=== PATIENT | male | born 1970 | race Caucasian/White ===

== ENCOUNTER → 2017-11-03 | Outpatient (CLI) | payer OTHER ==
[~2017-11-03] MED LIST: ANDRODERM T; KEFLEX500 M1 PO; LANTUS SOL100 UNIT/1 SQ; NEURONTIN800 MG PO; NOVOLOG 70/30 M10 ML SC; PROVENTIL HFA6.7 GM IH; TENORMIN25 M1 PO; TRULICITY0.75 MG/0. SC; ZESTRIL20 MG PO; ZOCOR20 MG PO
== END | disposition home or self-care (01) ==
LOC: US 07:26
DX: K83.1 Obstruction of bile duct (principal); G43.A0 Cyclical vomiting, in migraine, not intractable

== ENCOUNTER → 2017-11-27 | Day surgery (SDC) | payer OTHER ==
[~2017-11-27] VITALS: Ht 1828 cm; Wt 167.8 kg
== END ==
LOC: SDC 11-02 14:45
DX: Z12.11 Encounter for screening for malignant neoplasm of colon (principal); K21.9 Gastro-esophageal reflux disease without esophagitis; Z53.9 Procedure and treatment not carried out, unspecified reason

== ENCOUNTER → 2017-12-12 | Outpatient (CLI) | payer OTHER | LOC: US 10:38 | DX: R60.0 Localized edema (principal); R06.02 Shortness of breath; R05 Cough; I50.33 Acute on chronic diastolic (congestive) heart failure; I10 Essential (primary) hypertension; E11.9 Type 2 diabetes mellitus without complications; Z87.891 Personal history of nicotine dependence ==

== ENCOUNTER → 2017-12-21 | Outpatient (CLI) | payer OTHER | END | disposition home or self-care (01) | LOC: CARD 13:44 | DX: I50.33 Acute on chronic diastolic (congestive) heart failure (principal) ==

== ENCOUNTER 2019-12-28 13:49 | Emergency (ER) | payer OTHER ==
[~2019-12-28] VITALS: Ht 185.4 cm; Wt 161.9 kg
[2019-12-28] MEDS ORDERED: CYCLOBENZAPRINE10 MG PO (16:25)
[2019-12-28] MEDS ORDERED: Motrin,Rufen800 MG PO (16:25)
== END 2019-12-28 16:33 | disposition home or self-care (01) ==
LOC: ED 13:49
DX: S39.012A Strain of muscle, fascia and tendon of lower back, initial encounter (principal); S16.1XXA Strain of muscle, fascia and tendon at neck level, initial encounter; S29.012A Strain of muscle and tendon of back wall of thorax, initial encounter; I10 Essential (primary) hypertension; J45.909 Unspecified asthma, uncomplicated; E11.9 Type 2 diabetes mellitus without complications; F17.200 Nicotine dependence, unspecified, uncomplicated; V43.52XA Car driver injured in collision with other type car in traffic accident, initial encounter; Z91.041 Radiographic dye allergy status; Z79.4 Long term (current) use of insulin; Z79.899 Other long term (current) drug therapy; Y93.89 Activity, other specified; Y92.89 Other specified places as the place of occurrence of the external cause; Y99.9 Unspecified external cause status

== ENCOUNTER 2020-04-28 13:23 | Emergency (ER) | payer OTHER ==
[~2020-04-28] VITALS: Ht 182.8 cm; Wt 168.7 kg
[~2020-04-28 13:23] MED LIST changes: +CYCLOBENZAPRINE10 MG PO; +Motrin,Rufen800 MG PO
[2020-04-28] MEDS ORDERED: LOPRESSOR50 M1 PO (13:43)
== END 2020-04-28 14:12 | disposition home or self-care (01) ==
LOC: ED 13:23
DX: I16.0 Hypertensive urgency (principal); I10 Essential (primary) hypertension; J45.909 Unspecified asthma, uncomplicated; E11.9 Type 2 diabetes mellitus without complications; F17.200 Nicotine dependence, unspecified, uncomplicated; Z91.030 Bee allergy status; Z79.899 Other long term (current) drug therapy; Z79.4 Long term (current) use of insulin

== ENCOUNTER 2020-05-04 18:46 | Observation (INO) | payer OTHER ==
[~2020-05-04] VITALS: Ht 182.9 cm; Wt 168.3 kg
[~2020-05-04 18:46] MED LIST changes: +LOPRESSOR50 M1 PO
[2020-05-04 18:48] VITALS: BP 110/64
--- NOTE | 2020-05-04 19:24 | NUR ---
PT RESTING IN BED.FLUIDS INFUSING.PER MD LANGFORD FLUID BOLUS OF 500NS INITIATED.
[2020-05-04 19:25] LABS: BASO % 0.3 % (0.0-1.0); EOS % 0.3 % (1.0-4.0); HEMATOCRIT 47.2 % (42.0-52.0); LYMPH # 1.8 10*3/uL (1.3-4.4); LYMPH % 12.1 % (27.0-41.0); MEAN CELL VOLUME 85.7 fl (80.0-94.0); MEAN CORPUSCULAR HGB 28.5 pg (27.0-31.0); MEAN CORPUSCULAR HGB CONC 33.3 g/dl (33.0-37.0); MEAN PLATELET VOLUME 10.4 fl (9.6-12.3); MONO # 0.8 10*3/uL (0.1-1.0); MONO % 5.8 % (3.0-9.0); NEUT # 11.8 10*3/uL (2.3-7.9); PLATELET COUNT AUTOMATED 212 10*3/uL (130-400); RED BLOOD COUNT 5.51 10*6/uL (4.50-5.90); RED CELL DISTRI WIDTH 13.2 % (0-14.5); WHITE BLOOD COUNT 14.6 10*3/uL (4.8-10.8)
[2020-05-04 19:29] VITALS: BP 88/58
[2020-05-04 19:36] LABS: ACT PARTIAL THROMBO TIME 24.6 SECONDS (20.0-32.1); INTERNATIONAL NORM RATIO 0.9 (2.0-3.5)
[2020-05-04 19:41] LABS: ALBUMIN 3.1 gm/dl (3.1-4.5); ALKALINE PHOSPHATASE 90 U/L (45-117); BUN 19 mg/dl (7-24); CHLORIDE 103 mmol/L (98-107); CREATININE 1.44 mg/dL (0.70-1.30); POTASSIUM 3.7 mmol/L (3.5-5.1); SGOT/AST 14 IU/L (3-35); SGPT/ALT 29 U/L (12-78); SODIUM 135 mmol/L (136-145); TOTAL PROTEIN 7.3 gm/dL (6.4-8.2); TROPONIN I < 0.015 ng/ml (<0.045)
[2020-05-04 19:47] VITALS: BP 128/67
--- NOTE | 2020-05-04 19:47 | NUR ---
PT RETURNED FROM CT VIA STRETCHER.FLUIDS CONTINUE TO INFUSE.
--- NOTE | 2020-05-04 20:04 | NUR ---
INFUSION [id number] BOLUS NS COMPLETED.FLUIDS CONTINUE TO INFUSE @ 500CC/HR.
[2020-05-04] MEDS ORDERED: PIOGLITAZONE HC15 MG PO (20:19)
[2020-05-04] MEDS ORDERED: ROSUVASTATIN CAL5 MG PO (20:19)
[2020-05-04] MEDS ORDERED: TRULICITY1.5 MG/0.5 SC (20:20)
[2020-05-04] MEDS ORDERED: LEVOTHYROXINE50 MCG PO (20:36)
[2020-05-04] MEDS ORDERED: LASIX40 MG PO (20:37)
[2020-05-04] MEDS ORDERED: PREGABALIN200 MG PO (20:38)
[2020-05-04] MEDS ORDERED: ROPINIROLE HYDRO4 MG PO (20:39)
[2020-05-04 20:50] VITALS: BP 109/61
--- NOTE | 2020-05-04 20:56 | NUR ---
PASSWORD "[id number]" BY PT AND .
--- NOTE | 2020-05-04 20:57 | NUR ---
PT DENIES ANY WOUNDS, SORES OR CUTS AT THIS TIME.
--- NOTE | 2020-05-04 20:58 | NUR ---
PT DOES REPORT HE STILL HAS A HEADACHE. AWARE.
[2020-05-04 21:14] VITALS: BP 116/53
--- NOTE | 2020-05-04 21:14 | NUR ---
PT AWAITING ROOM ASSIGNMENT FOR ADMISSION TO UNIT. REMAINS AT BEDSIDE AT THIS TIME.
--- NOTE | 2020-05-04 21:28 | NUR ---
PT REPORTS HEADACHE 06/29.PT MEDICATED PER EMAR WTIH 30TORADOL IVP.
--- NOTE | 2020-05-04 21:35 | NUR ---
PT TO UNIT AT THIS TIME.
[2020-05-04 21:44] VITALS: BP 122/60
--- NOTE | 2020-05-04 21:44 | NUR ---
A 49, admitted to , under the services of AMANDA Chappell DO with a diagnosis of UNCONTROLLED DIABETES, SYNCOPE, HYPOTENSION. Chief complaint is SYNCOPE, HYPOTENSION. Patient arrived via stretcher from ER. Monitor applied. Initial assessment completed. Vital signs taken and recorded. AMANDA CHAPPELL DO notified of admission to the unit. Orders received. See assessment for past medical history, medications and allergies. Patient and/or family oriented to unit. [address] visitation policy reviewed. Clothing/patient valuable form completed. TEJINDER HAINES
--- NOTE | 2020-05-04 21:44 | NUR ---
PER PATIENT HE HAS SLEEP APNEA AND WEARS A CPAP AT NIGHT. PATIENT DID NOT BRING THIS IN WITH HIM AND IS GOING TO SEE IF HIS CAN BRING IT TOMORROW. PER PATIENT HE JUST USED 2L O2 LAST TIME HE WAS IN THE HOSPITAL AND THIS WAS FINE. PLACED ON 2L NC AT THIS TIME.
--- NOTE | 2020-05-04 21:56 | NUR ---
A 49, admitted to , under the services of AMANDA Chappell DO with a diagnosis of UNCONTROLLED DIABETES, SYNCOPE, HYPOTENSION. Chief complaint is SYNCOPE, LOW BP. Patient arrived via stretcher from ER. Monitor applied. Initial assessment completed. Vital signs taken and recorded. AMANDA CHAPPELL DO notified of admission to the unit. Orders received. See assessment for past medical history, medications and allergies. Patient and/or family oriented to unit. [address] visitation policy reviewed. Clothing/patient valuable form completed. TEJINDER HAINES
--- NOTE | 2020-05-04 23:12 | NUR ---
ANSWERING SERVICE NOTIFIED OF NEW CONSULT.
[2020-05-05] VITALS: BP 96/54
[2020-05-05 06:27] LABS: BUN 19 mg/dl (7-24); CHLORIDE 104 mmol/L (98-107); POTASSIUM 3.5 mmol/L (3.5-5.1); SODIUM 137 mmol/L (136-145)
[2020-05-05 06:40] LABS: CHOLESTEROL 184 mg/dL (<200); CREATININE 0.84 mg/dL (0.70-1.30); FREE T4 0.92 ng/dl (0.76-1.46); HDL CHOLESTEROL 51 mg/dl (40-60); LDL CHOLESTEROL 91 mg/dL (9-159); TRIGLYCERIDES 211 mg/dl (<150); VLDL CHOLESTEROL 42 mg/dL (6-40)
[2020-05-05 07:26] LABS: BASO % 0.2 % (0.0-1.0); EOS # 0.1 10*3/uL (0.0-0.4); EOS % 1.2 % (1.0-4.0); HEMATOCRIT 47.3 % (42.0-52.0); LYMPH # 2.6 10*3/uL (1.3-4.4); LYMPH % 21.7 % (27.0-41.0); MEAN CELL VOLUME 87.4 fl (80.0-94.0); MEAN CORPUSCULAR HGB 28.7 pg (27.0-31.0); MEAN CORPUSCULAR HGB CONC 32.8 g/dl (33.0-37.0); MEAN PLATELET VOLUME 10.4 fl (9.6-12.3); MONO # 0.8 10*3/uL (0.1-1.0); MONO % 6.6 % (3.0-9.0); NEUT # 8.5 10*3/uL (2.3-7.9); NEUT % 69.7 % (47.0-73.0); PLATELET COUNT AUTOMATED 172 10*3/uL (130-400); RED BLOOD COUNT 5.41 10*6/uL (4.50-5.90); RED CELL DISTRI WIDTH 13.4 % (0-14.5); WHITE BLOOD COUNT 12.1 10*3/uL (4.8-10.8)
[2020-05-05 08:00] VITALS: BP 127/82
--- NOTE | 2020-05-05 09:00 | NUR ---
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 Patient states lives at home with . There are 3 steps in the home. Physician: raymond astorga Pharmacy: [facility] Home health services: none Patient's level of ADLs: INDEPENDENT Patient has working utilities: all working DME: cpap Follow-up physician's appointment after d/c: will be made by hospitalist nurse director upon discharge Does patient want to access PORTAL?: no Discharge plan discussed with patient, he lives at home with and son, he is independent in adls and ambualtion, drives, he states he will return home when medically stable and denies any home needs, case management will follow. CALIN GARCIA
--- NOTE | 2020-05-05 09:22 | NUR ---
OFF FLOOR FOR STRESS TEST.
[2020-05-05 09:46] LABS: VITAMIN D, 25-HYDROXY 11.7 ng/mL (30-100)
--- NOTE | 2020-05-05 10:52 | NUR ---
INFORMED CONSENT SIGNED FOR LEXISCAN STRESS TEST WITH DR. LUND. RESTING EKG NSR, HR 88, BP 140/100. COMPLETED ONE MNUTE OF LEXISCAN PROTOCOL RECEIVING LEXISCAN 0.4MG OVER 10 SECONDS. NO ARRHYTHMIAS OR ST CHANGES NOTED. PT C/O SOB. LAST RECOVERY HR 94, BP 132/84. WAITING NUCLEAR SCANNING IN STABLE CONDITION.
--- NOTE | 2020-05-05 11:07 | NUR ---
PT STILL OFF FLOOR FOR STRESS TEST.
[2020-05-05 12:00] VITALS: BP 129/80
[2020-05-05] MEDS ORDERED: VITAMIN D350 MC1 PO (13:24)
--- NOTE | 2020-05-05 14:45 | NUR ---
[facility] Discharge instructions reviewed with patient/family. Patient receptive and verbalizes understanding. Follow-up care arranged. Written instructions given to patient/family. BERENICE YATES
== END 2020-05-05 14:45 | disposition home or self-care (01) ==
LOC: ED 18:46 → 4E 20:55 → EDHOLD 20:55 → 4E 20:55
PROVIDERS: Emergency Medicine; Internal Medicine; ADMIT Family Medicine
DX: R55 Syncope and collapse (principal); N17.0 Acute kidney failure with tubular necrosis; E87.1 Hypo-osmolality and hyponatremia; I95.9 Hypotension, unspecified; R00.0 Tachycardia, unspecified; E11.65 Type 2 diabetes mellitus with hyperglycemia; D72.829 Elevated white blood cell count, unspecified; E87.5 Hyperkalemia; I10 Essential (primary) hypertension; G25.81 Restless legs syndrome; E03.9 Hypothyroidism, unspecified; F41.9 Anxiety disorder, unspecified; G47.30 Sleep apnea, unspecified; J44.9 Chronic obstructive pulmonary disease, unspecified; E66.01 Morbid (severe) obesity due to excess calories; F17.210 Nicotine dependence, cigarettes, uncomplicated; E11.40 Type 2 diabetes mellitus with diabetic neuropathy, unspecified

== ENCOUNTER → 2020-05-07 | Outpatient (CLI) | payer OTHER ==
[~2020-05-07] MED LIST changes: +LASIX40 MG PO; +LEVOTHYROXINE50 MCG PO; +PIOGLITAZONE HC15 MG PO; +PREGABALIN200 MG PO; +ROPINIROLE HYDRO4 MG PO; +ROSUVASTATIN CAL5 MG PO; +TRULICITY1.5 MG/0.5 SC; +VITAMIN D350 MC1 PO
== END | disposition home or self-care (01) ==
LOC: RESCLI 01:15
DX: E11.65 Type 2 diabetes mellitus with hyperglycemia (principal); I10 Essential (primary) hypertension; G25.81 Restless legs syndrome; E03.9 Hypothyroidism, unspecified; E55.9 Vitamin D deficiency, unspecified; E78.2 Mixed hyperlipidemia; K21.9 Gastro-esophageal reflux disease without esophagitis; F17.200 Nicotine dependence, unspecified, uncomplicated; Z71.6 Tobacco abuse counseling; G47.33 Obstructive sleep apnea (adult) (pediatric); Z88.8 Allergy status to other drugs, medicaments and biological substances; Z79.899 Other long term (current) drug therapy; Z98.890 Other specified postprocedural states

== ENCOUNTER → 2020-06-10 | Outpatient (CLI) | payer OTHER ==
[2020-06-13 03:09] LABS: ALDOSTERONE, SERUM 6.8 ng/dL (0.0-30.0)
[2020-06-13 12:11] LABS: ALDOSTERONE/RENIN RATIO 10.1 (0.0-30.0); RENIN ACTIVITY (PLASMA) 0.67 ng/mL/hr (0.167-5.380)
[2020-06-15 20:06] LABS: METANEPHRINE, PLASMA 13.1 pg/mL (0.0-88.0)
[2020-06-16 15:05] LABS: NORMETANEPHRINE, PLASMA 63.8 pg/mL (0.0-125.8)
== END | disposition home or self-care (01) ==
LOC: RESCLI 11:41
PROVIDERS: Internal Medicine
DX: G25.81 Restless legs syndrome (principal); E03.9 Hypothyroidism, unspecified; E11.65 Type 2 diabetes mellitus with hyperglycemia; E55.9 Vitamin D deficiency, unspecified; I10 Essential (primary) hypertension; G47.33 Obstructive sleep apnea (adult) (pediatric); K21.9 Gastro-esophageal reflux disease without esophagitis; M41.9 Scoliosis, unspecified; Z71.6 Tobacco abuse counseling

== ENCOUNTER 2020-07-07 12:49 | Emergency (ER) | payer OTHER ==
[2020-07-07 13:11] LABS: BASO # 0.1 10*3/uL (0.0-0.1); BASO % 0.4 % (0.0-1.0); EOS # 0.1 10*3/uL (0.0-0.4); EOS % 0.7 % (1.0-4.0); HEMATOCRIT 49.1 % (42.0-52.0); LYMPH # 2.2 10*3/uL (1.3-4.4); LYMPH % 15.4 % (27.0-41.0); MEAN CELL VOLUME 84.9 fl (80.0-94.0); MEAN CORPUSCULAR HGB 28.2 pg (27.0-31.0); MEAN CORPUSCULAR HGB CONC 33.2 g/dl (33.0-37.0); MEAN PLATELET VOLUME 9.8 fl (9.6-12.3); MONO # 0.6 10*3/uL (0.1-1.0); MONO % 4.4 % (3.0-9.0); NEUT % 78.5 % (47.0-73.0); PLATELET COUNT AUTOMATED 193 10*3/uL (130-400); RED BLOOD COUNT 5.78 10*6/uL (4.50-5.90)
[2020-07-07 13:24] LABS: ACT PARTIAL THROMBO TIME 26.3 SECONDS (20.0-32.1); INTERNATIONAL NORM RATIO 0.9 (2.0-3.5)
[2020-07-07 13:30] LABS: ALBUMIN 3.4 gm/dl (3.1-4.5); ALKALINE PHOSPHATASE 105 U/L (45-117); BUN 10 mg/dl (7-24); CHLORIDE 101 mmol/L (98-107); LIPASE 86 U/L (73-393); POTASSIUM 3.7 mmol/L (3.5-5.1); SGOT/AST 17 IU/L (3-35); SGPT/ALT 36 U/L (12-78); SODIUM 133 mmol/L (136-145); TOTAL PROTEIN 8.2 gm/dL (6.4-8.2)
[2020-07-07 13:34] LABS: TROPONIN I < 0.015 ng/ml (<0.045)
[2020-07-07] MEDS ORDERED: CLONIDINE HCL0.1 MG PO (14:31)
[2020-07-07] MEDS ORDERED: 'CLONIDINE0.1 MG PO (14:34)
== END 2020-07-07 15:04 | disposition home or self-care (01) ==
LOC: ED 12:49
PROVIDERS: Emergency Medicine
DX: I10 Essential (primary) hypertension (principal); J45.909 Unspecified asthma, uncomplicated; E11.9 Type 2 diabetes mellitus without complications; J44.9 Chronic obstructive pulmonary disease, unspecified; F17.200 Nicotine dependence, unspecified, uncomplicated; Z91.041 Radiographic dye allergy status; Z79.899 Other long term (current) drug therapy

== ENCOUNTER → 2020-07-08 | Outpatient (CLI) | payer OTHER ==
[~2020-07-08] MED LIST changes: +'CLONIDINE0.1 MG PO; +CLONIDINE HCL0.1 MG PO
== END | disposition home or self-care (01) ==
LOC: RESCLI 09:23
DX: I10 Essential (primary) hypertension (principal); G25.81 Restless legs syndrome; E11.42 Type 2 diabetes mellitus with diabetic polyneuropathy; J41.1 Mucopurulent chronic bronchitis; E78.2 Mixed hyperlipidemia; K21.9 Gastro-esophageal reflux disease without esophagitis; E55.9 Vitamin D deficiency, unspecified; F17.200 Nicotine dependence, unspecified, uncomplicated; Z12.11 Encounter for screening for malignant neoplasm of colon; Z79.899 Other long term (current) drug therapy; Z90.49 Acquired absence of other specified parts of digestive tract; Z98.890 Other specified postprocedural states

== ENCOUNTER 2020-07-13 07:13 | Emergency (ER) | payer OTHER ==
[~2020-07-13] VITALS: Ht 182.8 cm; Wt 170.1 kg
[2020-07-13 07:36] LABS: BASO # 0.1 10*3/uL (0.0-0.1); BASO % 0.3 % (0.0-1.0); EOS # 0.1 10*3/uL (0.0-0.4); EOS % 0.5 % (1.0-4.0); HEMATOCRIT 47.6 % (42.0-52.0); LYMPH # 1.8 10*3/uL (1.3-4.4); LYMPH % 11.6 % (27.0-41.0); MEAN CELL VOLUME 86.4 fl (80.0-94.0); MEAN CORPUSCULAR HGB 28.1 pg (27.0-31.0); MEAN CORPUSCULAR HGB CONC 32.6 g/dl (33.0-37.0); MEAN PLATELET VOLUME 9.9 fl (9.6-12.3); MONO % 6.6 % (3.0-9.0); NEUT # 12.2 10*3/uL (2.3-7.9); NEUT % 80.3 % (47.0-73.0); PLATELET COUNT AUTOMATED 192 10*3/uL (130-400); RED BLOOD COUNT 5.51 10*6/uL (4.50-5.90); RED CELL DISTRI WIDTH 13.3 % (0-14.5); WHITE BLOOD COUNT 15.2 10*3/uL (4.8-10.8)
[2020-07-13 07:46] LABS: ACT PARTIAL THROMBO TIME 26.8 SECONDS (20.0-32.1)
[2020-07-13 07:59] LABS: ALBUMIN 3.1 gm/dl (3.1-4.5); ALKALINE PHOSPHATASE 94 U/L (45-117); BUN 9 mg/dl (7-24); CHLORIDE 107 mmol/L (98-107); CREATININE 0.77 mg/dL (0.70-1.30); POTASSIUM 4.5 mmol/L (3.5-5.1); SGOT/AST 58 IU/L (3-35); SGPT/ALT 42 U/L (12-78); SODIUM 137 mmol/L (136-145); TOTAL PROTEIN 7.9 gm/dL (6.4-8.2)
== END 2020-07-13 08:10 | disposition short-term general hospital (02) ==
LOC: ED 07:13
PROVIDERS: Emergency Medicine
DX: I21.3 ST elevation (STEMI) myocardial infarction of unspecified site (principal); I10 Essential (primary) hypertension; J45.909 Unspecified asthma, uncomplicated; E11.9 Type 2 diabetes mellitus without complications; J44.9 Chronic obstructive pulmonary disease, unspecified; Z79.899 Other long term (current) drug therapy; Z91.041 Radiographic dye allergy status

== ENCOUNTER → 2020-07-22 | Outpatient (CLI) | payer OTHER | END | disposition home or self-care (01) | LOC: RESCLI 13:13 | PROVIDERS: ATTEND Student in an Organized Health Care Education/Training Program | DX: Z09 Encounter for follow-up examination after completed treatment for conditions other than malignant neoplasm (principal); I25.10 Atherosclerotic heart disease of native coronary artery without angina pectoris; I10 Essential (primary) hypertension; E55.9 Vitamin D deficiency, unspecified; E03.9 Hypothyroidism, unspecified; E11.42 Type 2 diabetes mellitus with diabetic polyneuropathy; G25.81 Restless legs syndrome; J41.1 Mucopurulent chronic bronchitis; E78.2 Mixed hyperlipidemia; F17.210 Nicotine dependence, cigarettes, uncomplicated; K21.9 Gastro-esophageal reflux disease without esophagitis; Z79.899 Other long term (current) drug therapy; Z95.818 Presence of other cardiac implants and grafts; Z98.890 Other specified postprocedural states; Z91.041 Radiographic dye allergy status ==

== ENCOUNTER → 2020-11-06 | Outpatient (CLI) | payer OTHER | END | disposition home or self-care (01) | LOC: RESCLI 00:31 | PROVIDERS: ATTEND Student in an Organized Health Care Education/Training Program | DX: Z71.6 Tobacco abuse counseling (principal); G47.33 Obstructive sleep apnea (adult) (pediatric); J41.1 Mucopurulent chronic bronchitis; G25.81 Restless legs syndrome; K21.9 Gastro-esophageal reflux disease without esophagitis; I25.10 Atherosclerotic heart disease of native coronary artery without angina pectoris; I10 Essential (primary) hypertension; E11.65 Type 2 diabetes mellitus with hyperglycemia; E11.42 Type 2 diabetes mellitus with diabetic polyneuropathy; E03.9 Hypothyroidism, unspecified; E55.9 Vitamin D deficiency, unspecified; R21 Rash and other nonspecific skin eruption ==

== ENCOUNTER → 2021-01-18 | Outpatient (CLI) | payer OTHER ==
[2021-01-18 10:42] LABS: BUN 17 mg/dl (7-24); CHLORIDE 101 mmol/L (98-107); CREATININE 0.94 mg/dL (0.70-1.30); POTASSIUM 4.1 mmol/L (3.5-5.1); SODIUM 135 mmol/L (136-145)
== END | disposition home or self-care (01) ==
LOC: LAB 09:25
PROVIDERS: ATTEND Family Medicine
DX: I50.32 Chronic diastolic (congestive) heart failure (principal)

== ENCOUNTER 2021-05-06 14:29 | Emergency (ER) | payer OTHER ==
[~2021-05-06] VITALS: Wt 163.3 kg
[2021-05-06 17:20] LABS: BILIRUBIN Negative (Negative); BLOOD Trace-Intact (Negative); CLARITY Clear (Clear); COLOR Yellow (Yellow); GLUCOSE 3+ (Negative); KETONE 3+ (Negative); LEUKO ESTERASE Negative (Negative); NITRITE Negative (Negative); SPECIFIC GRAVITY >= 1.030 (1.001-1.030); UROBILINOGEN 0.2 E.U./dl (0.0-1.0)
[2021-05-06 17:33] LABS: BACTERIA 1+; EPITHELIAL CELLS 0-2; WBC 16-20 wbc/hpf (0-5)
[2021-05-06 17:44] LABS: BASO # 0.1 10*3/uL (0.0-0.1); BASO % 0.4 % (0.0-1.0); EOS # 0.1 10*3/uL (0.0-0.4); EOS % 0.6 % (1.0-4.0); HEMATOCRIT 44.7 % (42.0-52.0); LYMPH # 2.5 10*3/uL (1.3-4.4); LYMPH % 15.8 % (27.0-41.0); MEAN CELL VOLUME 83.2 fl (80.0-94.0); MEAN CORPUSCULAR HGB 28.3 pg (27.0-31.0); MEAN PLATELET VOLUME 9.8 fl (9.6-12.3); MONO # 0.9 10*3/uL (0.1-1.0); MONO % 5.8 % (3.0-9.0); NEUT # 12.2 10*3/uL (2.3-7.9); PLATELET COUNT AUTOMATED 224 10*3/uL (130-400); RED BLOOD COUNT 5.37 10*6/uL (4.50-5.90); RED CELL DISTRI WIDTH 12.6 % (0-14.5); WHITE BLOOD COUNT 15.9 10*3/uL (4.8-10.8)
[2021-05-06 18:07] LABS: ALBUMIN 2.8 gm/dl (3.1-4.5); ALKALINE PHOSPHATASE 94 U/L (45-117); BUN 17 mg/dl (7-24); CHLORIDE 96 mmol/L (98-107); CREATININE 0.75 mg/dL (0.70-1.30); LIPASE 251 U/L (73-393); POTASSIUM 4.1 mmol/L (3.5-5.1); SGOT/AST 4 IU/L (3-35); SGPT/ALT 14 U/L (12-78); SODIUM 132 mmol/L (136-145); TOTAL PROTEIN 7.4 gm/dL (6.4-8.2)
[2021-05-06] MEDS ORDERED: SEPTDS PO (21:43)
[2021-05-06] MEDS ORDERED: CIPRO500 MG PO (23:06)
[2021-05-06] MEDS ORDERED: FLAGYL500 MG PO (23:06)
== END 2021-05-06 23:47 | disposition home or self-care (01) ==
LOC: ED 14:29
PROVIDERS: Emergency Medicine
DX: K52.9 Noninfective gastroenteritis and colitis, unspecified (principal); K29.70 Gastritis, unspecified, without bleeding; Z91.041 Radiographic dye allergy status; Z79.899 Other long term (current) drug therapy

== ENCOUNTER → 2021-05-31 | Day surgery (SDC) | payer OTHER ==
[~2021-05-31] VITALS: Ht 182.8 cm; Wt 154.2 kg
[~2021-05-31] MED LIST changes: +ALLEGRA ALLERG180 M2 PO; +ASPIRIN81 M1 PO; +CARAFATE1 G1 PO; +CARVEDILOL3.125 MG PO; +CIPRO500 MG PO; +FLAGYL500 MG PO; +HUMULIN R500 UNIT/1 SQ; +HYDR25T PO; +NITROSTAT0.4 MG SL; +PEPCID40 MG PO; +PLAVIX75 M1 PO; +PROTONIX40 MG PO; +SEPTDS PO
[2021-05-31 08:20] VITALS: BP 171/103
[2021-05-31 09:38] VITALS: BP 117/65
[2021-05-31 09:55] VITALS: BP 130/74
[2021-05-31 10:09] VITALS: BP 120/93
[2021-05-31 10:22] VITALS: BP 122/84
== END | disposition home or self-care (01) ==
LOC: SDC 05-27 11:00
PROVIDERS: ATTEND Surgery
DX: R19.7 Diarrhea, unspecified (principal); K57.30 Diverticulosis of large intestine without perforation or abscess without bleeding; K25.9 Gastric ulcer, unspecified as acute or chronic, without hemorrhage or perforation; K29.50 Unspecified chronic gastritis without bleeding; K29.80 Duodenitis without bleeding; K26.9 Duodenal ulcer, unspecified as acute or chronic, without hemorrhage or perforation; K21.9 Gastro-esophageal reflux disease without esophagitis; I25.10 Atherosclerotic heart disease of native coronary artery without angina pectoris; I25.2 Old myocardial infarction; J44.9 Chronic obstructive pulmonary disease, unspecified; E11.40 Type 2 diabetes mellitus with diabetic neuropathy, unspecified; E03.9 Hypothyroidism, unspecified; I10 Essential (primary) hypertension; F17.210 Nicotine dependence, cigarettes, uncomplicated; E78.5 Hyperlipidemia, unspecified; G47.30 Sleep apnea, unspecified; Z99.89 Dependence on other enabling machines and devices; Z79.899 Other long term (current) drug therapy; Z91.048 Other nonmedicinal substance allergy status; Z20.822 Contact with and (suspected) exposure to COVID-19